=== PATIENT | female | born 1950 | race Caucasian/White ===

== ENCOUNTER 2019-08-30 08:05 | Inpatient (IN) | payer MEDICARE ==
--- NOTE | 2019-08-30 08:31 | ED ---
General Adult HPI - General Chief complaint: Skin/Abscess/Foreign Body Stated complaint: Poss Cellulitis, Dizzy Time Seen by Provider: 08/30/19 08:17 Source: patient Mode of arrival: ambulatory Limitations: no limitations - History of Present Illness Initial comments: Dictation was produced using [employer] dictation software. please excuse any grammatical, word or spelling errors. Chief Complaint: 69-year-old female presents with left arm pain History of Present Illness: 69-year-old female she presents today with left arm pain. It started yesterday. Patient also has been having subjective fevers since this morning. Patient has a history of amyloidosis. On Tuesday she had a IV infusion ordered by a neurologist downtown. She gets scheduled infusions that started recently. Patient states she had a infusion with IV catheter placed in the left antecubital. She states that the center of her pain is in the left antecubital with radiation 6 inches up and down the arm. Denies any nausea, vomiting. The ROS documented in this emergency department record has been reviewed and confirmed by me. Those systems with pertinent positive or negative responses have been documented in the HPI. All other systems are other negative and/or noncontributory. PHYSICAL EXAM: General Impression: Alert and oriented x3, not in acute distress HEENT: Normocephalic atraumatic, extra-ocular movements intact, pupils equal and reactive to light bilaterally, mucous membranes moist. Cardiovascular: Heart regular rate and rhythm, S1&S2 audible, no murmurs, rubs or gallops Chest: Lungs clear to auscultation bilaterally, no rhonchi, no wheeze, no rales Abdomen: Bowel sounds present, abdomen soft, non-tender, non-distended, no o rganomegaly Musculoskeletal: Pulses present and equal in all extremities, no peripheral edema Motor: no focal deficits noted Neurological: CN II-XII grossly intact, no focal motor or sensory deficits noted Skin: Cellulitic changes to the left upper extremity from the mid forearm to the mid biceps area. No palpable crepitus. Extremity pulses are intact. Psych: Normal affect and mood ED course: 69-year-old female presents with saline changes to the left upper extremity after infusion. Temperature is 101.0, heart rate 102, blood pressure 98/60. Clinical presentation concerning for sepsis. Laboratory evaluation obtained. Showing mild leukocytosis of 11.2. Rest of labs are grossly unremarkable. No saline changes noted on ultrasound. The veins of the arm are unremarkable. No findings of superficial thrombophlebitis. Extremity shows no soft tissue gas. Clinical presentation consistent with abscess secondary to cellulitis. Patient be admitted. She is given vancomycin and antipyretics. Patient agreeable with admission to the hospital. Patient case discussed with Dr. Fall's team. EKG interpretation: Ventricular rate 96, normal sinus rhythm, NV interval 132, care is 82, QTc 442. No NV prolongation, no QTC prolongation, no ST or T-wave changes noted. No old EKG for comparison. Overall, this EKG is unremarkable - Related Data Home Medications Medication Instructions Recorded Confirmed Acetaminophen [Tylenol] 650 mg PO Q6H PRN 08/30/19 08/30/19 Ibuprofen [Motrin Ib] 600 mg PO Q6H PRN 08/30/19 08/30/19 Levothyroxine Sodium [Synthroid] 125 mcg PO HS 08/30/19 08/30/19 Lisinopril 40 mg PO DAILY 08/30/19 08/30/19 Simvastatin [Zocor] 40 mg PO DAILY 08/30/19 08/30/19 Allergies Allergy/AdvReac Type Severity Reaction Status Date / Time No Known Allergies Allergy Verified 08/30/19 08:14 Review of Systems ROS Statement: Those systems with pertinent positive or pertinent negative responses have been documented in the HPI. ROS Other: All systems not noted in ROS Statement are negative. 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 History of Any Multi-Drug Resistant Organisms: None Reported Past Surgical History: Tonsillectomy Additional Past Surgical History / Comment(s): cyst removal from back Past Psychological History: No Psychological Hx Reported Smoking Status: Never smoker Past Alcohol Use History: Occasional Past Drug Use History: None Reported General Exam Limitations: no limitations Course Vital Signs 08/30/19 08:06 Temperature 101.0 F H Pulse Rate 102 H Respiratory 18 Rate Blood Pressure 98/60 O2 Sat by Pulse 96 Oximetry Medical Decision Making - Lab Data Result diagrams: 08/30/19 08:30 08/30/19 08:30 Lab Results 08/30/19 08/30/19 08/30/19 Range/Units 08:30 08:30 08:30 WBC 11.2 H (3.8-10.6) k/uL RBC 3.95 (3.80-5.40) m/uL Hgb 13.1 (11.4-16.0) gm/dL Hct 38.2 (34.0-46.0) % MCV 96.7 (80.0-100.0) fL MCH 33.1 (25.0-35.0) pg MCHC 34.2 (31.0-37.0) g/dL RDW 12.5 (11.5-15.5) % Plt Count 251 (150-450) k/uL Neutrophils % 90 % Lymphocytes % 5 % Monocytes % 3 % Eosinophils % 2 % Basophils % 0 % Neutrophils # 10.1 H (1.3-7.7) k/uL Lymphocytes # 0.5 L (1.0-4.8) k/uL Monocytes # 0.3 (0-1.0) k/uL Eosinophils # 0.2 (0-0.7) k/uL Basophils # 0.0 (0-0.2) k/uL PT 9.8 (9.0-12.0) sec INR 0.9 (<1.2) APTT 19.5 L (22.0-30.0) sec Sodium 137 (137-145) mmol/L Potassium 4.5 (3.5-5.1) mmol/L Chloride 102 (98-107) mmol/L Carbon Dioxide 26 (22-30) mmol/L Anion Gap 9 mmol/L BUN 28 H (7-17) mg/dL Creatinine 0.93 (0.52-1.04) mg/dL Est GFR (CKD-EPI)AfAm 74 (>60 ml/min/1.73 sqM) Est GFR (CKD-EPI)NonAf 64 (>60 ml/min/1.73 sqM) Glucose 106 H (74-99) mg/dL Plasma Lactic Acid Julio Cesar (0.7-2.0) mmol/L Calcium 9.5 (8.4-10.2) mg/dL Magnesium 2.0 (1.6-2.3) mg/dL 08/30/19 Range/Units 08:30 WBC (3.8-10.6) k/uL RBC (3.80-5.40) m/uL Hgb (11.4-16.0) gm/dL Hct (34.0-46.0) % MCV (80.0-100.0) fL MCH (25.0-35.0) pg MCHC (31.0-37.0) g/dL RDW (11.5-15.5) % Plt Count (150-450) k/uL Neutrophils % % Lymphocytes % % Monocytes % % Eosinophils % % Basophils % % Neutrophils # (1.3-7.7) k/uL Lymphocytes # (1.0-4.8) k/uL Monocytes # (0-1.0) k/uL Eosinophils # (0-0.7) k/uL Basophils # (0-0.2) k/uL PT (9.0-12.0) sec INR (<1.2) APTT (22.0-30.0) sec Sodium (137-145) mmol/L Potassium (3.5-5.1) mmol/L Chloride (98-107) mmol/L Carbon Dioxide (22-30) mmol/L Anion Gap mmol/L BUN (7-17) mg/dL Creatinine (0.52-1.04) mg/dL Est GFR (CKD-EPI)AfAm (>60 ml/min/1.73 sqM) Est GFR (CKD-EPI)NonAf (>60 ml/min/1.73 sqM) Glucose (74-99) mg/dL Plasma Lactic Acid Julio Cesar 2.0 (0.7-2.0) mmol/L Calcium (8.4-10.2) mg/dL Magnesium (1.6-2.3) mg/dL Disposition Clinical Impression: Cellulitis Disposition: ADMITTED IP TO THIS [facility] Condition: Fair Referrals: Justice Mejia MD [Primary Care Provider] - 1-2 days Decision Time: 10:25
[2019-08-30] MEDS ORDERED: VANCOMYCIN IV PER PHARMACY 1 EACH MISC MISCELLANE PRN (08:44)
[2019-08-30] MEDS ORDERED: VANCOMYCIN 1,750 MG in SODIUM CHLORIDE 0.9% 500 ML 500 ML IVPB STA (08:47)
[2019-08-30 09:00] LABS: Basophils % (A) 0 %; Eosinophils # (A) 0.2 k/uL (0-0.7); Eosinophils % (A) 2 %; HCT 38.2 % (34.0-46.0); HGB 13.1 gm/dL (11.4-16.0); Lymphocytes # (A) 0.5 k/uL (1.0-4.8); Lymphocytes % (A) 5 %; MCH 33.1 pg (25.0-35.0); MCHC 34.2 g/dL (31.0-37.0); MCV 96.7 fL (80.0-100.0); Mean Platelet Volume 5.8; Monocytes # (A) 0.3 k/uL (0-1.0); Monocytes % (A) 3 %; Neutrophils # (A) 10.1 k/uL (1.3-7.7); Neutrophils % (A) 90 %; Platelet Count 251 k/uL (150-450); RBC 3.95 m/uL (3.80-5.40); RDW 12.5 % (11.5-15.5); WBC 11.2 k/uL (3.8-10.6)
[2019-08-30 09:05] LABS: INR 0.9 (<1.2); Prothrombin Time 9.8 sec (9.0-12.0)
--- NOTE | 2019-08-30 09:05 | XR ---
EXAMINATION TYPE: XR elbow complete LT DATE OF EXAM: 08/30/2019 CLINICAL HISTORY: pain TECHNIQUE: Frontal, lateral and oblique images of the left elbow are obtained. COMPARISON: None. FINDINGS: There is no acute fracture/dislocation evident of the elbow. No abnormal fat pad signs ar e seen. The overlying soft tissue appears unremarkable. IMPRESSION: There is no acute fracture or dislocation of the elbow. ICD 10 NO FRACTURE, INITIAL EVALUATION
[2019-08-30 09:08] LABS: Calcium 9.5 mg/dL (8.4-10.2); Potassium 4.5 mmol/L (3.5-5.1)
[2019-08-30 09:21] LABS: Partial Thromboplastin Time 19.5 sec (22.0-30.0)
--- NOTE | 2019-08-30 09:42 | US ---
EXAMINATION TYPE: US venous doppler duplex UE LT DATE OF EXAM: 08/30/2019 COMPARISON: NONE CLINICAL HISTORY: ro septic thrombophlebitis. left arm redness post infusion. SIDE PERFORMED: left Left Arm: Negative for DVT Incidental note is made of enlarged node left axilla measuring 2.5 x 1.2 cm. IMPRESSION: Grayscale, color doppler, spectral doppler imaging performed of the deep veins of the upper extremiti es. There is normal flow, compressability and vascular waveforms. Incidental note is made of a left axillary lymph node measuring 2.5 x 1.2 cm correlate for adenopathy .
[2019-08-30] MEDS ORDERED: ACETAMINOPHEN TAB 500 MG TAB PO STA (10:25)
[2019-08-30] MEDS ORDERED: MORPHINE SULFATE 4 MG/ML SYRINGE IV PRN (10:26)
[2019-08-30] MEDS ORDERED: HYDROcodone/APAP 5-325MG 1 EACH TAB PO PRN (10:26)
[2019-08-30] MEDS ORDERED: ACETAMINOPHEN TAB 325 MG TAB PO PRN (10:26)
[2019-08-30] MEDS ORDERED: NALOXONE 0.4 MG/ML 1 ML VIAL IV PRN (10:26)
[2019-08-30] MEDS ORDERED: INFLUENZA VACCINE (6 MOS+) 60 MCG/0.5 ML SYRINGE IM ONE (11:20)
[2019-08-30] MEDS: SODIUM CHLORIDE 0.9% 1,000 ML IV SCH (12:26)
--- NOTE | 2019-08-30 12:30 | P.HPIM ---
History of Present Illness 69-year-old pleasant female came in with complaints of pain in the left arm found to have Seletz of the left arm. 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 Patient has mild pain when she doesn't move her arm and it that goes up to moderate about 5-6/10 in severity. Patient IV line infiltrated at that time patient was asked to put some ice with eyes swelling improved and patient ended up having cellulitis now patient did have fever secondary to cellulitis and patient was started on IV vancomycin. Patient doesn't have out of proportion pain because of which suspicion fornecrotizing fascia disease is low x-ray didn't show any gas Doppler did not show any thrombophlebitis or DVTAmma did have axillary lymphadenopathy.did not have any MRSA history patient received vancomycin will be switched to ceftezolin. Review of Systems REVIEW OF SYSTEMS: CONSTITUTIONAL: as mentioned in HPI HEENT: No recent visual problems or hearing problems. Denied any sore throat. CARDIOVASCULAR: No chest pain, orthopnea, PND, no palpitations, no syncope. PULMONARY: No shortness of breath, no cough, no hemoptysis. GASTROINTESTINAL: No diarrhea, no nausea, no vomiting, no abdominal pain. NEUROLOGICAL: No headaches, no weakness, no numbness. HEMATOLOGICAL: Denies any bleeding or petechiae. GENITOURINARY: Denies any burning micturition, frequency, or urgency. MUSCULOSKELETAL/RHEUMATOLOGICAL: Denies any joint pain, swelling, or any muscle pain. ENDOCRINE: Denies any polyuria or polydipsia. The rest of the 14-point review of systems is negative. 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 with patisiran infusion every 3 weeks with last dose given 08/28/19 iv L antecubital, amyloidosis causes pt polyneuropathy/ carpal tunnel syndrome bilaterally/ GI system affected with constipation/diarrhea, hypothyroid, bronchitis History of Any Multi-Drug Resistant Organisms: None Reported Past Surgical History: Tonsillectomy Additional Past Surgical History / Comment(s): Colonoscopies/benign polyps, cyst removal from back Past Anesthesia/Blood Transfusion Reactions: No Reported Reaction Smoking Status: Never smoker - Past Family History Mother Family Medical History: Dementia Additional Family Medical History / Comment(s): Mother lived to be 88 yrs old. Father Family Medical History: Asthma, Coronary Artery Disease (CAD), Diabetes Mellitus, GERD/Reflux, Hypertension Additional Family Medical History / Comment(s): Father is 88 yrs old. He has had CABG Medications and Allergies Home Medications Medication Instructions Recorded Confirmed Type Acetaminophen [Tylenol] 650 mg PO Q6H PRN 08/30/19 08/30/19 History Ibuprofen [Motrin Ib] 600 mg PO Q6H PRN 08/30/19 08/30/19 History Levothyroxine Sodium [Synthroid] 125 mcg PO HS 08/30/19 08/30/19 History Lisinopril 40 mg PO DAILY 08/30/19 08/30/19 History Simvastatin [Zocor] 40 mg PO DAILY 08/30/19 08/30/19 History Allergies Allergy/AdvReac Type Severity Reaction Status Date / Time No Known Allergies Allergy Verified 08/30/19 08:14 Physical Exam Vitals: Vital Signs Temp Pulse Resp BP Pulse Ox 08/30/19 10:50 99.5 F 85 18 111/64 98 08/30/19 08:06 101.0 F H 102 H 18 98/60 96 Intake and Output 08/29/19 08/30/19 08/30/19 22:59 06:59 14:59 Other: Weight 86.183 kg PHYSICAL EXAMINATION: GENERAL: The patient is alert and oriented x3, not in any acute distress. Well developed, well nourished. HEENT: Pupils are round and equally reacting to light. EOMI. No scleral icterus. No conjunctival pallor. Normocephalic, atraumatic. No pharyngeal erythema. No thyromegaly. CARDIOVASCULAR: S1 and S2 present. No murmurs, rubs, or gallops. PULMONARY: Chest is clear to auscultation, no wheezing or crackles. ABDOMEN: Soft, nontender, nondistended, normoactive bowel sounds. No palpable organomegaly. MUSCULOSKELETAL: No joint swelling or deformity. EXTREMITIES: No cyanosis, clubbing, or pedal edema. anticoagulation has redness in the left upper extremity around the elbow area and the distal arm and p roximal forearm extending close to the wrist area. Local is of temperature and redness. Tenderness to touch NEUROLOGICAL: Gross neurological examination did not reveal any focal deficits. SKIN: let us as mentioned above Results CBC & Chem 7: 08/30/19 08:30 08/30/19 08:30 Labs: Abnormal Lab Results - Last 24 Hours (Table) 08/30/19 08/30/19 08/30/19 Range/Units 08:30 08:30 08:30 WBC 11.2 H (3.8-10.6) k/uL Neutrophils # 10.1 H (1.3-7.7) k/uL Lymphocytes # 0.5 L (1.0-4.8) k/uL APTT 19.5 L (22.0-30.0) sec BUN 28 H (7-17) mg/dL Glucose 106 H (74-99) mg/dL Thrombosis Risk Factor Assmnt - Choose All That Apply Any of the Below Risk Factors Present?: Yes Each Factor Represents 1 point: Obesity (BMI >25) Other Risk Factors: Yes Each Risk Factor Represents 2 Points: Age 61-74 years Other congenital or acquired thrombophilia - If yes, enter type in comment: No Thrombosis Risk Factor Assessment Total Risk Factor Score: 3 Thrombosis Risk Factor Assessment Level: Moderate Risk Assessment and Plan Plan: sepsis: secondary to reduce alert us of the left upper extremity no evidence of thrombophlebitis of DVT of the upper extremity probably streptococcal infection patient will be started on ceftezole and infectious disease will be consulted. -history of amyloidosis with peripheral neuropathy, carpal tunnel syndrome from that. No other system involvement. -Hyperlipidemia -Hypertension -Hypothyroidism -DVT prophylaxis early ambulation
[2019-08-30] MEDS: ONDANSETRON 4 MG/2 ML VIAL IVP PRN ×2 (14:10→20:15)
[2019-08-30] MEDS: ACETAMINOPHEN TAB 325 MG TAB PO PRN ×2 (14:15→22:56)
[2019-08-30] MEDS: LEVOTHYROXINE 125 MCG TAB PO SCH (20:15)
[2019-08-30] MEDS: KETOROLAC 30 MG/ML 1 ML VIAL IVP PRN (20:24)
[2019-08-31] MEDS: KETOROLAC 30 MG/ML 1 ML VIAL IVP PRN ×2 (03:15→17:33)
[2019-08-31] MEDS ORDERED: VANCOMYCIN 1,500 MG in SODIUM CHLORIDE 0.9% 250 ML IVPB SCH ×4 (04:00)
[2019-08-31] MEDS: ACETAMINOPHEN TAB 325 MG TAB PO PRN ×2 (05:31→15:06)
[2019-08-31 06:56] LABS: HCT 35.5 % (34.0-46.0); MCH 33.1 pg (25.0-35.0); MCHC 33.8 g/dL (31.0-37.0); MCV 98.1 fL (80.0-100.0); Mean Platelet Volume 5.7; Platelet Count 177 k/uL (150-450); RBC 3.62 m/uL (3.80-5.40); RDW 12.5 % (11.5-15.5); WBC 9.6 k/uL (3.8-10.6)
[2019-08-31 07:02] LABS: Calcium 8.4 mg/dL (8.4-10.2)
[2019-08-31] MEDS ORDERED: LISINOPRIL 20 MG TAB PO SCH (09:00)
[2019-08-31] MEDS: LISINOPRIL 10 MG TAB PO SCH (09:05)
[2019-08-31] MEDS: ATORVASTATIN 20 MG TAB PO SCH (09:05)
[2019-08-31] MEDS: SODIUM CHLORIDE 0.9% 1,000 ML IV SCH (11:36)
[2019-08-31] MEDS: ONDANSETRON 4 MG/2 ML VIAL IVP PRN (12:46)
--- NOTE | 2019-08-31 13:04 | P.CONS ---
History of Present Illness - Reason for Consult Consult date: 08/31/19 Left arm cellulitis - History of Present Illness This is a 69-year-old female with significant past medical history of HATTR amyloidosis on Patisiran infusions every 3 weeks since April of this year. Patient does not have a port or central line in place and receives this through a peripheral IV start. She received an infusion at [facility] in [place] on Tuesday and at that time there was infiltration of the medication into her arm. It was swollen at the time and hot packs were applied and there was some resolution of the swelling at the time. On Tuesday she noticed redness to her left arm and by morning she had significant pain it was very hot and red and she was feeling very sick with fever chills and body aches. Patient came into [facility] emergency center for evaluation. Her temperature max is 102.8, WBC 11.2, creatinine 0.93. Duplex Doppler of the left upper extremity was negative for DVT. X-ray of the left elbow revealed no fracture or dislocation of the elbow. Patient was admitted to the [facility] floor and was started on. Patient received 1 dose of vancomycin in the emergency center. Blood Cultures No Growth after 24 Hours. Patient states is slightly less red and swollen from yesterday. Review of Systems Constitutional: Reports chills, Reports fatigue, Reports fever, Reports malaise, Denies poor appetite Eyes: denies blurred vision, denies pain Ears, nose, mouth and throat: Denies dysphagia, Denies headache, Denies mouth pain, Denies nasal congestion, Denies nasal discharge, Denies sore throat, Denies vertigo Cardiovascular: Denies chest pain, Denies decreased exercise tolerance, Denies dyspnea on exertion, Denies edema, Denies irregular heart beat, Denies leg edema, Denies lightheadedness, Denies orthopnea, Denies palpitations, Denies shortness of breath, Denies syncope Respiratory: Denies congestion, Denies cough, Denies cough with sputum, Denies dyspnea, Denies excessive sputum, Denies hemoptysis, Denies home oxygen, Denies respiratory infections, Denies wheezing Gastrointestinal: Denies abdominal pain, Denies diarrhea, Denies loss of appetite, Denies nausea, Denies vomiting Genitourinary: Denies dysuria, Denies hematuria, Denies urgency, Denies urinary frequency Musculoskeletal: Denies frequent falls, Denies gait dysfunction, Denies muscle weakness, Denies myalgias Integumentary: Reports color changes, Reports darkening of skin, Denies pruritus, Denies rash, Denies wounds Neurological: Denies change in mentation, Denies change in speech, Denies gait dysfunction, Denies numbness, Denies seizures, Denies weakness Psychiatric: Denies anxiety, Denies depression Endocrine: Denies fatigue, Denies weight change 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 with patisiran infusion every 3 weeks with last dose given 08/28/19 iv L antecubital, amyloidosis causes pt polyneuropathy/ carpal tunnel syndrome bilaterally/ GI system affected with constipation/diarrhea, hypothyr oid, bronchitis History of Any Multi-Drug Resistant Organisms: None Reported Past Surgical History: Tonsillectomy Additional Past Surgical History / Comment(s): Colonoscopies/benign polyps, cyst removal from back Past Anesthesia/Blood Transfusion Reactions: No Reported Reaction Smoking Status: Never smoker Additional Past Alcohol Use History / Comment(s): Patient is a lifelong nonsmoker, no illicit drug use. Patient drinks alcohol occasionally. She lives at home with her to dogs, one cat, one turtle in fish in the home. 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 Father Family Medical History: Asthma, Coronary Artery Disease (CAD), Diabetes Mellitus, GERD/Reflux, Hypertension Additional Family Medical History / Comment(s): Father is 88 yrs old. He has had CABG Medications and Allergies Home Medications Medication Instructions Recorded Confirmed Type Acetaminophen [Tylenol] 650 mg PO Q6H PRN 08/30/19 08/30/19 History Ibuprofen [Motrin Ib] 600 mg PO Q6H PRN 08/30/19 08/30/19 History Levothyroxine Sodium [Synthroid] 125 mcg PO HS 08/30/19 08/30/19 History Lisinopril 40 mg PO DAILY 08/30/19 08/30/19 History Simvastatin [Zocor] 40 mg PO DAILY 08/30/19 08/30/19 History Allergies Allergy/AdvReac Type Severity Reaction Status Date / Time No Known Allergies Allergy Verified 08/30/19 08:14 Physical Exam Vitals: Vital Signs Temp Pulse Resp BP Pulse Ox 08/31/19 05:15 98.9 F 80 20 104/65 96 08/31/19 00:10 100.6 F H 08/30/19 23:06 102.8 F H 93 122/70 96 08/30/19 21:36 102.3 F H 08/30/19 20:20 102.7 F H 100 24 128/69 94 L 08/30/19 18:04 98.7 F 08/30/19 15:29 100.5 F H 08/30/19 15:03 16 08/30/19 14:04 102.1 F H 94 18 128/82 95 Intake and Output 08/30/19 08/31/19 08/31/19 22:59 06:59 14:59 Intake Total 540 Balance 540 Intake: Oral 540 Other: Voiding Method Toilet # Voids 1 1 Gen: This is a 69-year-old female. Patient is resting in bed and appears to be comfortable and in no acute distress. HEENT: Head is atraumatic, normocephalic. Pupils equal, round. Sclerae is anicteric. Oral mucous membranes are moist. No thrush noted. NECK: Supple. No JVD. No lymphadenopathy. No thyromegaly. LUNGS: Clear to auscultation. No wheezes or rhonchi. No intercostal retractions. HEART: Regular rate and rhythm. No murmur. ABDOMEN: Soft. Bowel sounds are present. No masses. No tenderness. EXTREMITIES: No pedal edema. No calf tenderness. Significant redness and erythema to the left arm starting below the deltoid to the breast. NEUROLOGICAL: Patient is awake, alert and oriented x3. Cranial nerves 2 through 12 are grossly intact. Results Results: Laboratory Results WBC 9.6 k/uL (3.8-10.6) 08/31/19 06:25 RBC 3.62 m/uL (3.80-5.40) L 08/31/19 06:25 Hgb 12.0 gm/dL (11.4-16.0) 08/31/19 06:25 Hct 35.5 % (34.0-46.0) 08/31/19 06:25 MCV 98.1 fL (80.0-100.0) 08/31/19 06:25 MCH 33.1 pg (25.0-35.0) 08/31/19 06:25 MCHC 33.8 g/dL (31.0-37.0) 08/31/19 06:25 RDW 12.5 % (11.5-15.5) 08/31/19 06:25 Plt Count 177 k/uL (150-450) 08/31/19 06:25 Neutrophils % 90 % 08/30/19 08:30 Lymphocytes % 5 % 08/30/19 08:30 Monocytes % 3 % 08/30/19 08:30 Eosinophils % 2 % 08/30/19 08:30 Basophils % 0 % 08/30/19 08:30 Neutrophils # 10.1 k/uL (1.3-7.7) H 08/30/19 08:30 Lymphocytes # 0.5 k/uL (1.0-4.8) L 08/30/19 08:30 Monocytes # 0.3 k/uL (0-1.0) 08/30/19 08:30 Eosinophils # 0.2 k/uL (0-0.7) 08/30/19 08:30 Basophils # 0.0 k/uL (0-0.2) 08/30/19 08:30 PT 9.8 sec (9.0-12.0) 08/30/19 08:30 INR 0.9 (<1.2) 08/30/19 08:30 APTT 19.5 sec (22.0-30.0) L 08/30/19 08:30 Sodium 135 mmol/L (137-145) L 08/31/19 06:25 Potassium 4.0 mmol/L (3.5-5.1) 08/31/19 06:25 Chloride 103 mmol/L (98-107) 08/31/19 06:25 Carbon Dioxide 25 mmol/L (22-30) 08/31/19 06:25 Anion Gap 7 mmol/L 08/31/19 06:25 BUN 22 mg/dL (7-17) H 08/31/19 06:25 Creatinine 0.96 mg/dL (0.52-1.04) 08/31/19 06:25 Est GFR (CKD-EPI)AfAm 70 (>60 ml/min/1.73 sqM) 08/31/19 06:25 Est GFR (CKD-EPI)NonAf 61 (>60 ml/min/1.73 sqM) 08/31/19 06:25 Glucose 104 mg/dL (74-99) H 08/31/19 06:25 Plasma Lactic Acid Julio Cesar 2.0 mmol/L (0.7-2.0) 08/30/19 08:30 Calcium 8.4 mg/dL (8.4-10.2) 08/31/19 06:25 Magnesium 2.0 mg/dL (1.6-2.3) 08/30/19 08:30 CBC & Chem 7: 08/31/19 06:25 08/31/19 06:25 Labs: Abnormal Lab Results - Last 24 Hours (Table) 08/31/19 08/31/19 Range/Units 06:25 06:25 RBC 3.62 L (3.80-5.40) m/uL Sodium 135 L (137-145) mmol/L BUN 22 H (7-17) mg/dL Glucose 104 H (74-99) mg/dL Microbiology - Last 24 Hours (Table) 08/30/19 08:30 Blood Culture - Preliminary Blood No Growth after 24 hours Assessment and Plan Plan: Of this is a 69-year-old female who presented to the hospital due to sepsis and cellulitis of the left upper extremity, negative for DVT, secondary to infiltration of Patisiran infusion which occurred on Tuesday at [facility]. The patient is currently on Kefzol with some improvement. Patient to keep left arm elevated. Blood culture is showing no growth at 24 hours. Continue supportive care. Further recommendations as patient progresses. The above dictated assessment and findings were discussed with Dr. Bradshaw. The impression and plan of care have been directed as dictated. Melody Calderón nurse practitioner acting as scribe for Dr. Bradshaw.
--- NOTE | 2019-08-31 17:58 | P.PN ---
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 Patient does not have a port or central line in place and receives this through a peripheral IV start. She received an infusion at [facility] in [place] on Tuesday and at that time there was infiltration of the medication into her arm. It was swollen at the time and hot packs were applied and there was some resolution of the swelling at the time. On Tuesday she noticed redness to her left arm and by morning she had significant pain it was very hot and red and she was feeling very sick with fever chills and body aches. Patient came into [facility] emergency center for evaluation. Her temperature max is 102.8, WBC 11.2, creatinine 0.93. Duplex Doppler of the left upper extremity was negative for DVT. X-ray of the left elbow revealed no fracture or dislocation of the elbow. Patient was admitted to the [facility] floor and was started on. Patient received 1 dose of vancomycin in the emergency center. Blood Cultures No Growth after 24 Hours. Patient states is slightly less red and swollen from yesterday. Objective - Vital Signs Vital signs: Vital Signs Temp 98.9 F 08/31/19 05:15 Pulse 80 08/31/19 05:15 Resp 20 08/31/19 05:15 BP 104/65 08/31/19 05:15 Pulse Ox 96 08/31/19 05:15 Intake & Output 08/30/19 08/31/19 08/31/19 18:59 06:59 18:59 Intake Total 1080 Output Total 100 Balance 980 Weight 86.183 kg Intake: Oral 1080 Output: Emesis 100 Other: Voiding Method Toilet # Voids 1 1 - Exam HEENT: Head is atraumatic, normocephalic. Pupils equal, round. Sclerae is anicteric. Oral mucous membranes are moist. No thrush noted. NECK: Supple. No JVD. No lymphadenopathy. No thyromegaly. LUNGS: Clear to auscultation. No wheezes or rhonchi. No intercostal retractions. HEART: Regular rate and rhythm. No murmur. ABDOMEN: Soft. Bowel sounds are present. No masses. No tenderness. EXTREMITIES: No pedal edema. No calf tenderness. Significant redness and erythema to the left arm starting below the deltoid to the breast. NEUROLOGICAL: Patient is awake, alert and oriented x3. Cranial nerves 2 through 12 are grossly intact. - Labs CBC & Chem 7: 08/31/19 06:25 08/31/19 06:25 Labs: Abnormal Lab Results - Last 24 Hours (Table) 08/31/19 08/31/19 Range/Units 06:25 06:25 RBC 3.62 L (3.80-5.40) m/uL Sodium 135 L (137-145) mmol/L BUN 22 H (7-17) mg/dL Glucose 104 H (74-99) mg/dL Assessment and Plan Assessment: sepsis: secondary to reduce alert us of the left upper extremity no evidence of thrombophlebitis of DVT of the upper extremity probably streptococcal infection patient will be started on ceftezole and infectious disease will be consulted. -history of amyloidosis with peripheral neuropathy, carpal tunnel syndrome from that. No other system involvement. -Hyperlipidemia -Hypertension -Hypothyroidism -DVT prophylaxis early ambulation
[2019-08-31] MEDS: LEVOTHYROXINE 125 MCG TAB PO SCH (21:33)
--- NOTE | 2019-08-31 23:46 | P.CON ---
Consult Note - . 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 Patient does not have a port or central line in place and receives this through a peripheral IV start. She received an infusion at [facility] in [place] on Tuesday and at that time there was infiltration of the medication into her arm. It was swollen at the time and hot packs were applied and there was some resolution of the swelling at the time. On Tuesday she noticed redness to her left arm and by morning she had significant pain it was very hot and red and she was feeling very sick with fever chills and body aches. Patient came into [facility] emergency center for evaluation. Her temperature max is 102.8, WBC 11.2, creatinine 0.93. Duplex Doppler of the left upper extremity was negative for DVT. X-ray of the left elbow revealed no fracture or dislocation of the elbow. Patient was admitted to the [facility] floor and was started on. Patient received 1 dose of vancomycin in the emergency center. Blood Cultures No Growth after 24 Hours. Patient states is slightly less red and swollen from yesterday. Please see the consult note is dictated by nurse practitioner Mrs. Melody Calderón. He has noted this pleasant woman has a history of amyloidosis and has been developing some difficulties with polyneuropathy. She has been treated with the mRNA antagonist Patisiran which she has been tolerating well. She received the peripheral infusion and Tuesday. It was noted at the time of infusion that she likely had some extravasation into the soft tissue of the arm. With the following day she started to feel more more ill and family comes to hospital with high-grade fever 102.8 significant swelling irritation and discomfort to the arm was swelling. Because of this she was brought to the hospital and admitted. Duplexes failed to reveal evidence of any deep venous thrombosis and no evidence of the knee bony abnormalities by x-ray. Consult was requested because of cellulitis. Literature review relates that this particular medication causes significant infusion site reactions, there seems to be no lo loli antidote that can be given. Given the proteinaceous nature of the material appears to be breaking down and reaction is starting to improve. Some local treatment with Silvadene wrap will be utilized and that should be elevated to help with the edema. The site does not appear to be grossly infected however there does appear to be significant redness and with that cefazolin was initiated which is reasonable this point in time given her many difficulties. 102.8 fever has now resolved and is also likely directly related to the acute inflammatory process to the left arm. Evaluation assessment and plan as dictated by nurse practitioner Mrs. Melody Calderón.
[2019-09-01] MEDS: ONDANSETRON 4 MG/2 ML VIAL IVP PRN (01:49)
[2019-09-01 06:32] LABS: Basophils # (A) 0.1 k/uL (0-0.2); Basophils % (A) 1 %; Eosinophils # (A) 0.2 k/uL (0-0.7); Eosinophils % (A) 4 %; HCT 34.9 % (34.0-46.0); HGB 11.6 gm/dL (11.4-16.0); Lymphocytes # (A) 0.7 k/uL (1.0-4.8); Lymphocytes % (A) 10 %; MCH 32.6 pg (25.0-35.0); MCHC 33.4 g/dL (31.0-37.0); MCV 97.7 fL (80.0-100.0); Mean Platelet Volume 6.7; Monocytes # (A) 0.1 k/uL (0-1.0); Monocytes % (A) 2 %; Neutrophils # (A) 5.6 k/uL (1.3-7.7); Neutrophils % (A) 83 %; Platelet Count 184 k/uL (150-450); RBC 3.57 m/uL (3.80-5.40); RDW 12.4 % (11.5-15.5); WBC 6.8 k/uL (3.8-10.6)
[2019-09-01 06:45] LABS: African American GFR (CKD) >90 (>60 ml/min/1.73 sqM); Anion Gap 8 mmol/L; Blood Urea Nitrogen 18 mg/dL (7-17); Calcium 8.5 mg/dL (8.4-10.2); Carbon Dioxide 26 mmol/L (22-30); Chloride 102 mmol/L (98-107); Glucose 91 mg/dL (74-99); Non-African American GFR(CKD) 85 (>60 ml/min/1.73 sqM); Potassium 4.2 mmol/L (3.5-5.1); Sodium 136 mmol/L (137-145)
[2019-09-01] MEDS: LISINOPRIL 10 MG TAB PO SCH (08:51)
[2019-09-01] MEDS: ATORVASTATIN 20 MG TAB PO SCH (08:51)
[2019-09-01] MEDS: KETOROLAC 30 MG/ML 1 ML VIAL IVP PRN (08:51)
[2019-09-01] MEDS: SODIUM CHLORIDE 0.9% 1,000 ML IV SCH (11:11)
--- NOTE | 2019-09-01 15:51 | P.PN ---
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 Patient does not have a port or central line in place and receives this through a peripheral IV start. She received an infusion at [facility] in [place] on Tuesday and at that time there was infiltration of the medication into her arm. It was swollen at the time and hot packs were applied and there was some resolution of the swelling at the time. On Tuesday she noticed redness to her left arm and by morning she had significant pain it was very hot and red and she was feeling very sick with fever chills and body aches. Patient came into [facility] emergency center for evaluation. Her temperature max is 102.8, WBC 11.2, creatinine 0.93. Duplex Doppler of the left upper extremity was negative for DVT. X-ray of the left elbow revealed no fracture or dislocation of the elbow. Patient was admitted to the [facility] floor and was started on. Patient received 1 dose of vancomycin in the emergency center. Blood Cultures No Growth after 24 Hours. Patient states is slightly less red and swollen from yesterday. 09/01/2019 Patient is seen and evaluated in room at bedside; patient does report some improvement in pain but redness and left upper arm is extending Vital signs are reviewed and patient remains afebrile; white blood count remains within normal limits Patient was given 1 dose of vancomycin in ED which has since been discontinued by ID; patient remains on IV cefazolin; blood cultures have been negative so far; await further recommendations from ID Objective - Vital Signs Vital signs: Vital Signs Temp 98.7 F 09/01/19 05:26 Pulse 82 09/01/19 05:26 Resp 16 09/01/19 05:26 BP 157/84 09/01/19 05:26 Pulse Ox 96 09/01/19 05:26 Intake & Output 08/31/19 09/01/19 09/01/19 18:59 06:59 18:59 Intake Total 1080 Balance 1080 Intake: Oral 1080 Other: # Voids 1 0 - Exam HEENT: Head is atraumatic, normocephalic. Pupils equal, round. Sclerae is anicteric. Oral mucous membranes are moist. No thrush noted. NECK: Supple. No JVD. No lymphadenopathy. No thyromegaly. LUNGS: Clear to auscultation. No wheezes or rhonchi. No intercostal retractions. HEART: Regular rate and rhythm. No murmur. ABDOMEN: Soft. Bowel sounds are present. No masses. No tenderness. EXTREMITIES: No pedal edema. No calf tenderness. Significant redness and erythema to the left arm starting below the deltoid to the breast. NEUROLOGICAL: Patient is awake, alert and oriented x3. Cranial nerves 2 through 12 are grossly intact. - Labs CBC & Chem 7: 09/01/19 05:41 09/01/19 05:41 Labs: Abnormal Lab Results - Last 24 Hours (Table) 09/01/19 09/01/19 Range/Units 05:41 05:41 RBC 3.57 L (3.80-5.40) m/uL Lymphocytes # 0.7 L (1.0-4.8) k/uL Sodium 136 L (137-145) mmol/L BUN 18 H (7-17) mg/dL Microbiology - Last 24 Hours (Table) 08/30/19 08:30 Blood Culture - Preliminary Blood No Growth after 24 hours Assessment and Plan Assessment: sepsis: secondary to reduce alert us of the left upper extremity no evidence of thrombophlebitis of DVT of the upper extremity probably streptococcal infection patient will be started on ceftezole and infectious disease will be consulted. -history of amyloidosis with peripheral neuropathy, carpal tunnel syndrome from that. No other system involvement. -Hyperlipidemia -Hypertension -Hypothyroidism -DVT prophylaxis early ambulation Time with Patient: Greater than 30
[2019-09-01] MEDS: LEVOTHYROXINE 125 MCG TAB PO SCH (20:19)
--- NOTE | 2019-09-01 21:38 | P.PN ---
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 Patient does not have a port or central line in place and receives this through a peripheral IV start. She received an infusion at [facility] in [place] on Tuesday and at that time there was infiltration of the medication into her arm. It was swollen at the time and hot packs were applied and there was some resolution of the swelling at the time. On Tuesday she noticed redness to her left arm and by morning she had significant pain it was very hot and red and she was feeling very sick with fever chills and body aches. Patient came into [facility] emergency center for evaluation. Her temperature max is 102.8, WBC 11.2, creatinine 0.93. Duplex Doppler of the left upper extremity was negative for DVT. X-ray of the left elbow revealed no fracture or dislocation of the elbow. Patient was admitted to the [facility] floor and was started on. Patient received 1 dose of vancomycin in the emergency center. Blood Cultures No Growth after 24 Hours. Patient states is slightly less red and swollen from yesterday. 09/01/2019 the patient started to feel slightly better. The pain is swelling to the limb has improved. Nursing did apply a Ambrocio wrap last night at the dressing and this is uncomfortable has been removed. It wrap should not be reapplied. The patient does relate that she's feeling slightly better and is having improvement of her fevers. Her other new acute complaints today. Objective - Vital Signs Vital signs: Vital Signs Temp 98.0 F 09/01/19 14:32 Pulse 88 09/01/19 14:32 Resp 18 09/01/19 14:32 BP 124/60 09/01/19 14:32 Pulse Ox 97 09/01/19 14:32 Intake & Output 09/01/19 09/01/19 09/02/19 06:59 18:59 06:59 Intake Total 400 Balance 400 Intake: Oral 400 Other: # Voids 0 1 # Bowel Movements 1 - Exam Gen: This is a 69-year-old female. Patient is resting in bed and appears to be comfortable and in no acute distress. HEENT: Head is atraumatic, normocephalic. Pupils equal, round. Sclerae is anicteric. Oral mucous membranes are moist. No thrush noted. NECK: Supple. No JVD. No lymphadenopathy. No thyromegaly. LUNGS: Clear to auscultation. No wheezes or rhonchi. No intercostal retract ions. HEART: Regular rate and rhythm. No murmur. ABDOMEN: Soft. Bowel sounds are present. No masses. No tenderness. EXTREMITIES: No pedal edema. No calf tenderness. The left arm has shown some improvement. This is still erythema is starting to dionne however there is now some erythema that has started to develop more proximally on the arm but is not yet at the shoulder or axillary area. Tenderness at the site is definitely improved warmth is improved. No other lesions are seen. NEUROLOGICAL: Patient is awake, alert and oriented x3. - Labs CBC & Chem 7: 09/01/19 05:41 09/01/19 05:41 Labs: Abnormal Lab Results - Last 24 Hours (Table) 09/01/19 09/01/19 Range/Units 05:41 05:41 RBC 3.57 L (3.80-5.40) m/uL Lymphocytes # 0.7 L (1.0-4.8) k/uL Sodium 136 L (137-145) mmol/L BUN 18 H (7-17) mg/dL Microbiology - Last 24 Hours (Table) 08/30/19 08:30 Blood Culture - Preliminary Blood No Growth after 48 hours Laboratory Results WBC 6.8 k/uL (3.8-10.6) 09/01/19 05:41 RBC 3.57 m/uL (3.80-5.40) L 09/01/19 05:41 Hgb 11.6 gm/dL (11.4-16.0) 09/01/19 05:41 Hct 34.9 % (34.0-46.0) 09/01/19 05:41 MCV 97.7 fL (80.0-100.0) 09/01/19 05:41 MCH 32.6 pg (25.0-35.0) 09/01/19 05:41 MCHC 33.4 g/dL (31.0-37.0) 09/01/19 05:41 RDW 12.4 % (11.5-15.5) 09/01/19 05:41 Plt Count 184 k/uL (150-450) 09/01/19 05:41 Neutrophils % 83 % 09/01/19 05:41 Lymphocytes % 10 % 09/01/19 05:41 Monocytes % 2 % 09/01/19 05:41 Eosinophils % 4 % 09/01/19 05:41 Basophils % 1 % 09/01/19 05:41 Neutrophils # 5.6 k/uL (1.3-7.7) 09/01/19 05:41 Lymphocytes # 0.7 k/uL (1.0-4.8) L 09/01/19 05:41 Monocytes # 0.1 k/uL (0-1.0) 09/01/19 05:41 Eosinophils # 0.2 k/uL (0-0.7) 09/01/19 05:41 Basophils # 0.1 k/uL (0-0.2) 09/01/19 05:41 PT 9.8 sec (9.0-12.0) 08/30/19 08:30 INR 0.9 (<1.2) 08/30/19 08:30 APTT 19.5 sec (22.0-30.0) L 08/30/19 08:30 Sodium 136 mmol/L (137-145) L 09/01/19 05:41 Potassium 4.2 mmol/L (3.5-5.1) 09/01/19 05:41 Chloride 102 mmol/L (98-107) 09/01/19 05:41 Carbon Dioxide 26 mmol/L (22-30) 09/01/19 05:41 Anion Gap 8 mmol/L 09/01/19 05:41 BUN 18 mg/dL (7-17) H 09/01/19 05:41 Creatinine 0.73 mg/dL (0.52-1.04) 09/01/19 05:41 Est GFR (CKD-EPI)AfAm >90 (>60 ml/min/1.73 sqM) 09/01/19 05:41 Est GFR (CKD-EPI)NonAf 85 (>60 ml/min/1.73 sqM) 09/01/19 05:41 Glucose 91 mg/dL (74-99) 09/01/19 05:41 Plasma Lactic Acid Julio Cesar 2.0 mmol/L (0.7-2.0) 08/30/19 08:30 Calcium 8.5 mg/dL (8.4-10.2) 09/01/19 05:41 Magnesium 2.0 mg/dL (1.6-2.3) 08/30/19 08:30 C. difficile (EIA) Intrp Negative (Negative) 09/01/19 09:25 Microbiology 08/30/19 08:30 Blood Blood Culture - Preliminary No Growth after 48 hours Assessment and Plan (1) Amyloidosis Current Visit: Yes Status: Acute Code(s): E85.9 - AMYLOIDOSIS, UNSPECIFIED SNOMED Code(s): 87506550 (2) Cellulitis Current Visit: Yes Status: Acute Code(s): L03.90 - CELLULITIS, UNSPECIFIED SNOMED Code(s): 527561991 (3) Adverse reaction to drug that acts primarily on skin Narrative/Plan: 69-year-old pleasant woman has a history of amyloidosis and has been developing some difficulties with polyneuropathy. She has been treated with the mRNA antagonist Patisiran which she has been tolerating well. She received the peripheral infusion and Tuesday. It was noted at the time of infusion that she likely had some extravasation into the soft tissue of the arm. With the following day she started to feel more more ill and family comes to hospital with high-grade fever 102.8 significant swelling irritation and discomfort to the arm was swelling. Because of this she was brought to the hospital and admitted. Duplexes failed to reveal evidence of any deep venous thrombosis and no evidence of the knee bony abnormalities by x-ray. Consult was requested because of cellulitis. Literature review relates that this particular m edication causes significant infusion site reactions, there seems to be no local antidote that can be given. Given the proteinaceous nature of the material appears to be breaking down and reaction is starting to improve. Some local treatment with Silvadene wrap will be utilized and that should be elevated to help with the edema. The site does not appear to be grossly infected however there does appear to be significant redness and with that cefazolin was initiated which is reasonable this point in time given her many difficulties. 102.8 fever has now resolved and is also likely directly related to the acute inflammatory process to the left arm. September 01 2019 the patient is feeling somewhat better today, is with less pain and swelling and discomfort. There is no resolution of her fever over the last greater than 12 hours and she is aware that this is occurring because she feels better. It is stable continue local wound care which is Silvadene and rolled gauze only without an Ambrocio wrap due to the discomfort. Continue to monitor her fever. Elevated on 3 pillows. We'll continue with ceftezole and for the treatment of potential cellulitis although it does appear to be the adverse reaction to the drug. There are no other new changes at this point in time except some improvement. Current Visit: Yes Status: Acute Code(s): T49.95XA - ADVERSE EFFECT OF UNSPECIFIED TOPICAL AGENT, INIT ENCNTR SNOMED Code(s): 073256295
[2019-09-02 07:05] LABS: Basophils % (A) 1 %; Eosinophils # (A) 0.3 k/uL (0-0.7); Eosinophils % (A) 5 %; HCT 35.8 % (34.0-46.0); HGB 11.7 gm/dL (11.4-16.0); Lymphocytes # (A) 1.1 k/uL (1.0-4.8); Lymphocytes % (A) 21 %; MCH 31.7 pg (25.0-35.0); MCHC 32.7 g/dL (31.0-37.0); MCV 96.8 fL (80.0-100.0); Mean Platelet Volume 6.3; Monocytes # (A) 0.1 k/uL (0-1.0); Monocytes % (A) 2 %; Neutrophils # (A) 3.6 k/uL (1.3-7.7); Neutrophils % (A) 70 %; Platelet Count 216 k/uL (150-450); RBC 3.69 m/uL (3.80-5.40); RDW 12.3 % (11.5-15.5); WBC 5.1 k/uL (3.8-10.6)
[2019-09-02 07:17] LABS: African American GFR (CKD) >90 (>60 ml/min/1.73 sqM); Anion Gap 5 mmol/L; Blood Urea Nitrogen 15 mg/dL (7-17); Calcium 8.5 mg/dL (8.4-10.2); Carbon Dioxide 28 mmol/L (22-30); Chloride 105 mmol/L (98-107); Glucose 91 mg/dL (74-99); Non-African American GFR(CKD) 89 (>60 ml/min/1.73 sqM); Potassium 4.1 mmol/L (3.5-5.1); Sodium 138 mmol/L (137-145)
[2019-09-02] MEDS: LISINOPRIL 10 MG TAB PO SCH (07:45)
[2019-09-02] MEDS: ATORVASTATIN 20 MG TAB PO SCH (07:45)
[2019-09-02] MEDS: KETOROLAC 30 MG/ML 1 ML VIAL IVP PRN (07:51)
[2019-09-02] MEDS: SODIUM CHLORIDE 0.9% 1,000 ML IV SCH (11:59)
--- NOTE | 2019-09-02 16:02 | P.PN ---
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 Patient does not have a port or central line in place and receives this through a peripheral IV start. She received an infusion at [facility] in [place] on Tuesday and at that time there was infiltration of the medication into her arm. It was swollen at the time and hot packs were applied and there was some resolution of the swelling at the time. On Tuesday she noticed redness to her left arm and by morning she had significant pain it was very hot and red and she was feeling very sick with fever chills and body aches. Patient came into [facility] emergency center for evaluation. Her temperature max is 102.8, WBC 11.2, creatinine 0.93. Duplex Doppler of the left upper extremity was negative for DVT. X-ray of the left elbow revealed no fracture or dislocation of the elbow. Patient was admitted to the [facility] floor and was started on. Patient received 1 dose of vancomycin in the emergency center. Blood Cultures No Growth after 24 Hours. Patient states is slightly less red and swollen from yesterday. 09/01/2019 Patient is seen and evaluated in room at bedside; patient does report some improvement in pain but redness and left upper arm is extending Vital signs are reviewed and patient remains afebrile; white blood count remains within normal limits Patient was given 1 dose of vancomycin in ED which has since been discontinued by ID; patient remains on IV cefazolin; blood cultures have been negative so far; await further recommendations from ID 09/02/2019 Patient is seen and evaluated with family members at bedside; does report improvement in swelling and pain off left arm Vital signs show a temperature of 98.7, pulse 80 and blood pressure of 155/88 Lab review shows a normal white blood count of 5.1 IDs following patient and recommending to continue with IV cefazolin for another 24 hours; patient will be followed clinically with possible transition to oral antibiotics in next 24-48 hours pending clinical outcome Objective - Vital Signs Vital signs: Vital Signs Temp 98.0 F 09/02/19 05:19 Pulse 78 09/02/19 05:19 Resp 17 09/02/19 05:19 BP 155/86 09/02/19 05:19 Pulse Ox 95 09/02/19 05:19 Intake & Output 09/01/19 09/02/19 09/02/19 18:59 06:59 18:59 Intake Total 400 400 Balance 400 400 Intake: Oral 400 400 Other: Voiding Method Toilet # Voids 1 1 # Bowel Movements 1 - Exam HEENT: Head is atraumatic, normocephalic. Pupils equal, round. Sclerae is anicteric. Oral mucous membranes are moist. No thrush noted. NECK: Supple. No JVD. No lymphadenopathy. No thyromegaly. LUNGS: Clear to auscultation. No wheezes or rhonchi. No intercostal retractions. HEART: Regular rate and rhythm. No murmur. ABDOMEN: Soft. Bowel sounds are present. No masses. No tenderness. EXTREMITIES: No pedal edema. No calf tenderness. Significant redness and erythema to the left arm starting below the deltoid to the breast. NEUROLOGICAL: Patient is awake, alert and oriented x3. Cranial nerves 2 through 12 are grossly intact. - Labs CBC & Chem 7: 09/02/19 06:27 09/02/19 06:27 Labs: Abnormal Lab Results - Last 24 Hours (Table) 09/02/19 Range/Units 06:27 RBC 3.69 L (3.80-5.40) m/uL Microbiology - Last 24 Hours (Table) 08/30/19 08:30 Blood Culture - Preliminary Blood No Growth after 72 hours Assessment and Plan Assessment: sepsis: secondary to reduce alert us of the left upper extremity no evidence of thrombophlebitis of DVT of the upper extremity probably streptococcal infection patient will be started on ceftezole and infectious disease will be consulted. -history of amyloidosis with peripheral neuropathy, carpal tunnel syndrome from that. No other system involvement. -Hyperlipidemia -Hypertension -Hypothyroidism -DVT prophylaxis early ambulation Time with Patient: Greater than 30
[2019-09-02] MEDS: LEVOTHYROXINE 125 MCG TAB PO SCH (22:38)
--- NOTE | 2019-09-02 22:48 | P.PN ---
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 Patient does not have a port or central line in place and receives this through a peripheral IV start. She received an infusion at [facility] in [place] on Tuesday and at that time there was infiltration of the medication into her arm. It was swollen at the time and hot packs were applied and there was some resolution of the swelling at the time. On Tuesday she noticed redness to her left arm and by morning she had significant pain it was very hot and red and she was feeling very sick with fever chills and body aches. Patient came into [facility] emergency center for evaluation. Her temperature max is 102.8, WBC 11.2, creatinine 0.93. Duplex Doppler of the left upper extremity was negative for DVT. X-ray of the left elbow revealed no fracture or dislocation of the elbow. Patient was admitted to the [facility] floor and was started on. Patient received 1 dose of vancomycin in the emergency center. Blood Cultures No Growth after 24 Hours. Patient states is slightly less red and swollen from yesterday. 09/01/2019 the patient started to feel slightly better. The pain is swelling to the limb has improved. Nursing did apply a Ambrocio wrap last night at the dressing and this is uncomfortable has been removed. It wrap should not be reapplied. The patient does relate that she's feeling slightly better and is having improvement of her fevers. Her other new acute complaints today. 09/02/2019 the patient has further improvement. The pain and discomfort of the arm is further improved. She is now nearly a without fever. She has no other new acute complaints. No other skin rashes have initiated. Objective - Vital Signs Vital signs: Vital Signs Temp 98.0 F 09/02/19 14:25 Pulse 80 09/02/19 14:25 Resp 20 09/02/19 14:25 BP 155/88 09/02/19 14:25 Pulse Ox 98 09/02/19 14:25 Intake & Output 09/02/19 09/02/19 09/03/19 06:59 18:59 06:59 Intake Total 1200 Balance 1200 Intake: Oral 1200 Other: Voiding Method Toilet # Voids 1 1 - Exam Gen: This is a 69-year-old female. Patient is resting in bed and a ppears to be comfortable and in no acute distress. HEENT: Head is atraumatic, normocephalic. Pupils equal, round. Sclerae is anicteric. Oral mucous membranes are moist. No thrush noted. NECK: Supple. No JVD. No lymphadenopathy. No thyromegaly. LUNGS: Clear to auscultation. No wheezes or rhonchi. No intercostal retractions. HEART: Regular rate and rhythm. No murmur. ABDOMEN: Soft. Bowel sounds are present. No masses. No tenderness. EXTREMITIES: No pedal edema. No calf tenderness. The left arm has shown some improvement. This is still erythema is starting to dionne however there is now some erythema that has started to develop more proximally on the arm but is not yet at the shoulder or axillary area. Tenderness at the site is definitely improved warmth is improved. No other lesions are seen. NEUROLOGICAL: Patient is awake, alert and oriented x3. - Labs CBC & Chem 7: 09/02/19 06:27 09/02/19 06:27 Labs: Abnormal Lab Results - Last 24 Hours (Table) 09/02/19 Range/Units 06:27 RBC 3.69 L (3.80-5.40) m/uL Microbiology - Last 24 Hours (Table) 08/30/19 08:30 Blood Culture - Preliminary Blood No Growth after 72 hours Laboratory Results WBC 5.1 k/uL (3.8-10.6) 09/02/19 06:27 RBC 3.69 m/uL (3.80-5.40) L 09/02/19 06:27 Hgb 11.7 gm/dL (11.4-16.0) 09/02/19 06:27 Hct 35.8 % (34.0-46.0) 09/02/19 06:27 MCV 96.8 fL (80.0-100.0) 09/02/19 06:27 MCH 31.7 pg (25.0-35.0) 09/02/19 06:27 MCHC 32.7 g/dL (31.0-37.0) 09/02/19 06:27 RDW 12.3 % (11.5-15.5) 09/02/19 06:27 Plt Count 216 k/uL (150-450) 09/02/19 06:27 Neutrophils % 70 % 09/02/19 06:27 Lymphocytes % 21 % 09/02/19 06:27 Monocytes % 2 % 09/02/19 06:27 Eosinophils % 5 % 09/02/19 06:27 Basophils % 1 % 09/02/19 06:27 Neutrophils # 3.6 k/uL (1.3-7.7) 09/02/19 06:27 Lymphocytes # 1.1 k/uL (1.0-4.8) 09/02/19 06:27 Monocytes # 0.1 k/uL (0-1.0) 09/02/19 06:27 Eosinophils # 0.3 k/uL (0-0.7) 09/02/19 06:27 Basophils # 0.0 k/uL (0-0.2) 09/02/19 06:27 PT 9.8 sec (9.0-12.0) 08/30/19 08:30 INR 0.9 (<1.2) 08/30/19 08:30 APTT 19.5 sec (22.0-30.0) L 08/30/19 08:30 Sodium 138 mmol/L (137-145) 09/02/19 06:27 Potassium 4.1 mmol/L (3.5-5.1) 09/02/19 06:27 Chloride 105 mmol/L (98-107) 09/02/19 06:27 Carbon Dioxide 28 mmol/L (22-30) 09/02/19 06:27 Anion Gap 5 mmol/L 09/02/19 06:27 BUN 15 mg/dL (7-17) 09/02/19 06:27 Creatinine 0.70 mg/dL (0.52-1.04) 09/02/19 06:27 Est GFR (CKD-EPI)AfAm >90 (>60 ml/min/1.73 sqM) 09/02/19 06:27 Est GFR (CKD-EPI)NonAf 89 (>60 ml/min/1.73 sqM) 09/02/19 06:27 Glucose 91 mg/dL (74-99) 09/02/19 06:27 Plasma Lactic Acid Julio Cesar 2.0 mmol/L (0.7-2.0) 08/30/19 08:30 Calcium 8.5 mg/dL (8.4-10.2) 09/02/19 06:27 Magnesium 2.0 mg/dL (1.6-2.3) 08/30/19 08:30 C. difficile (EIA) Intrp Negative (Negative) 09/01/19 09:25 Microbiology 08/30/19 08:30 Blood Blood Culture - Preliminary No Growth after 72 hours Assessment and Plan (1) Amyloidosis Current Visit: Yes Status: Acute Code(s): E85.9 - AMYLOIDOSIS, UNSPECIFIED SNOMED Code(s): 39158434 (2) Cellulitis Current Visit: Yes Status: Acute Code(s): L03.90 - CELLULITIS, UNSPECIFIED SNOMED Code(s): 482080993 (3) Adverse reaction to drug that acts primarily on skin Narrative/Plan: 69-year-old pleasant woman has a history of amyloidosis and has been developing some difficulties with polyneuropathy. She has been treated with the mRNA antagonist Patisiran which she has been tolerating well. She received the peripheral infusion and Tuesday. It was noted at the time of infusion that she likely had some extravasation into the soft tissue of the arm. With the following day she started to feel more more ill and family comes to hospital with high-grade fever 102.8 significant swelling irritation and discomfort to the arm was swelling. Because of this she was brought to the hospital and admitted. Duplexes failed to reveal evidence of any deep venous thrombosis and no evidence of the knee bony abnormalities by x-ray. Consult was requested because of cellulitis. Literature review relates that this particular medi cation causes significant infusion site reactions, there seems to be no local antidote that can be given. Given the proteinaceous nature of the material appears to be breaking down and reaction is starting to improve. Some local treatment with Silvadene wrap will be utilized and that should be elevated to help with the edema. The site does not appear to be grossly infected however there does appear to be significant redness and with that cefazolin was initiated which is reasonable this point in time given her many difficulties. 102.8 fever has now resolved and is also likely directly related to the acute inflammatory process to the left arm. September 01 2019 the patient is feeling somewhat better today, is with less pain and swelling and discomfort. There is no resolution of her fever over the last greater than 12 hours and she is aware that this is occurring because she feels better. It is stable continue local wound care which is Silvadene and rolled gauze only without an Ambrocio wrap due to the discomfort. Continue to monitor her fever. Elevated on 3 pillows. We'll continue with ceftezole and for the treatment of potential cellulitis although it does appear to be the adverse reaction to the drug. There are no other new changes at this point in time except some improvement. 09/02/2019 patient has further improvement. Pain swelling and discomfort have all improved. The erythema has not traversed into the axillary area. She's doing well with Silvadene and some rolled gauze and elevation. With resolution of her fever she will likely be discharged home tomorrow completed a course of oral Ancef to follow with her physician at [facility] in [place]. She may do well to have advice on a more permanent port which may decrease the difficulties with confusion related difficulties. Current Visit: Yes Status: Acute Code(s): T49.95XA - ADVERSE EFFECT OF UNSPECIFIED TOPICAL AGENT, INIT ENCNTR SNOMED Code(s): 318022451
[2019-09-03] MEDS: ATORVASTATIN 20 MG TAB PO SCH (07:30)
[2019-09-03] MEDS: LISINOPRIL 10 MG TAB PO SCH (07:30)
[2019-09-03] MEDS: SODIUM CHLORIDE 0.9% 1,000 ML IV SCH (07:30)
[2019-09-03 07:54] LABS: Basophils % (A) 1 %; Eosinophils # (A) 0.3 k/uL (0-0.7); Eosinophils % (A) 5 %; HGB 12.9 gm/dL (11.4-16.0); Lymphocytes # (A) 1.3 k/uL (1.0-4.8); Lymphocytes % (A) 27 %; MCH 31.9 pg (25.0-35.0); MCV 96.6 fL (80.0-100.0); Mean Platelet Volume 6.1; Monocytes # (A) 0.1 k/uL (0-1.0); Monocytes % (A) 3 %; Neutrophils # (A) 3.1 k/uL (1.3-7.7); Neutrophils % (A) 64 %; Platelet Count 259 k/uL (150-450); RBC 4.04 m/uL (3.80-5.40); RDW 12.1 % (11.5-15.5); WBC 4.8 k/uL (3.8-10.6)
[2019-09-03 08:08] LABS: African American GFR (CKD) >90 (>60 ml/min/1.73 sqM); Anion Gap 7 mmol/L; Blood Urea Nitrogen 13 mg/dL (7-17); Calcium 9.2 mg/dL (8.4-10.2); Carbon Dioxide 29 mmol/L (22-30); Chloride 104 mmol/L (98-107); Glucose 99 mg/dL (74-99); Non-African American GFR(CKD) >90 (>60 ml/min/1.73 sqM); Potassium 4.5 mmol/L (3.5-5.1); Sodium 140 mmol/L (137-145)
[2019-09-03 08:16] VITALS: BP 189/99; PULSE 87; RESP 16; TEMP 97.6
[2019-09-03] MEDS ORDERED: LISINOPRIL 20 MG TAB PO SCH (09:00)
[2019-09-03] MEDS ORDERED: LISINOPRIL 10 MG TAB PO ONE (09:30)
[2019-09-04] MEDS ORDERED: LISINOPRIL 20 MG TAB PO SCH (09:00)
== END 2019-09-03 15:23 | disposition home or self-care (01) | DRG 867 ==
LOC: EC 08:05 → 4MS4W 10:26 → OBSVTOIN 09-01 13:51
PROVIDERS: ADMIT Hospitalist; ATTEND Hospitalist
DX: T80.29XA Infection following other infusion, transfusion and therapeutic injection, initial encounter (principal); A40.9 Streptococcal sepsis, unspecified; L03.114 Cellulitis of left upper limb; E85.1 Neuropathic heredofamilial amyloidosis; G63 Polyneuropathy in diseases classified elsewhere; I10 Essential (primary) hypertension; E03.9 Hypothyroidism, unspecified; G56.03 Carpal tunnel syndrome, bilateral upper limbs; E78.5 Hyperlipidemia, unspecified; Z23 Encounter for immunization; K21.9 Gastro-esophageal reflux disease without esophagitis; K59.00 Constipation, unspecified; R19.7 Diarrhea, unspecified; Z79.890 Hormone replacement therapy; Z79.899 Other long term (current) drug therapy; Z86.010 Personal history of colon polyps; Z98.890 Other specified postprocedural states; Y84.8 Other medical procedures as the cause of abnormal reaction of the patient, or of later complication, without mention of misadventure at the time of the procedure; Z82.0 Family history of epilepsy and other diseases of the nervous system; Z82.5 Family history of asthma and other chronic lower respiratory diseases; Z82.49 Family history of ischemic heart disease and other diseases of the circulatory system; Z83.79 Family history of other diseases of the digestive system; Z83.3 Family history of diabetes mellitus
CPT/HCPCS: 36415; 80048; 83605; 83735; 85025; 85027; 85610; 85730; 87040; 87324; 93005; 96365; 99285